=== PATIENT | male | born 1965 | race African-American/Black ===

== ENCOUNTER 2022-06-23 01:01 | Emergency (ER) | payer MEDICAID, OTHER ==
[~2022-06-23] VITALS: Ht 210.8 cm; Wt 83.0 kg
[2022-06-23] MEDS ORDERED: IV NS 0.9% 1,000 ML IV ONE (03:00)
[2022-06-23] MEDS ORDERED: VANCOMYCIN HCL 1.25 GM in IV D5W 260 ML IV ONE (03:00)
[2022-06-23] MEDS ORDERED: VANCOMYCIN 500 MG VIAL ONE (03:06)
[2022-06-23] MEDS ORDERED: VANCOMYCIN 1 GM VIAL ONE (03:06)
[2022-06-23 04:38] LABS: BASOPHILS % (AUTO) 0.5 % (0.0-2.0); EOSINOPHILS % (AUTO) 0.9 % (0.0-6.0); HEMATOCRIT 38 % (39-51); HEMOGLOBIN 12.4 g/dL (13.5-17.5); LYMPHOCYTES # (AUTO) 0.4 K/uL (0.8-4.8); LYMPHOCYTES % (AUTO) 9.1 % (20.0-44.0); MEAN CORPUSCULAR HGB CONC 33 g/dl (31.0-36.0); MEAN CORPUSCULAR VOLUME 92 fL (80-96); MONOCYTES # (AUTO) 0.5 K/uL (0.1-1.30); MONOCYTES % (AUTO) 11.7 % (2.0-12.0); NEUTROPHILS # (AUTO) 3.6 K/uL (1.8-8.9); NEUTROPHILS % (AUTO) 77.8 % (43.0-81.0); PLATELET COUNT (AUTO) 131 K/uL (150-450); RED BLOOD CELL COUNT(AUTO) 4.13 MIL/uL (4.5-6.0); WHITE BLOOD COUNT (AUTO) 4.7 K/uL (4.3-11.0)
[2022-06-23 05:23] LABS: BILIRUBIN,TOTAL 0.6 mg/dL (0.2-1.0); CALCIUM, SERUM 9.4 mg/dL (8.5-10.1); CREATININE 1.2 mg/dL (0.6-1.3); TOTAL PROTEIN, SERUM 7.5 g/dL (6.4-8.2)
[2022-06-23] MEDS ORDERED: ONDANSETRON HCL/PF 4 MG/2 ML VIAL IVP PRN (05:30)
[2022-06-23] MEDS ORDERED: ACETAMINOPHEN 325 MG TABLET PO PRN (05:30)
[2022-06-23] MEDS ORDERED: IV NS 0.9% 1,000 ML IV PRN (05:30)
[2022-06-23] MEDS ORDERED: HYDROCODONE/APAP 5/325MG TABLET PO PRN (05:30)
[2022-06-23] MEDS ORDERED: ENOXAPARIN SODIUM 40 MG/0.4 ML DISP.SYRIN SQ SCH (05:30)
--- NOTE | 2022-06-23 07:00 | NUR ---
BLOOD SAMPLES OBTAINED
--- NOTE | 2022-06-23 07:00 | NUR ---
R AC 20 g
--- NOTE | 2022-06-23 07:00 | NUR ---
BIBS FOR ABSCESS OF RLE. A/O X 3, ABLE TO MAKE NEEDS KNOWN, TOLERATING WELL ON ROOM AIR.
--- NOTE | 2022-06-23 10:06 | NUR ---
CALLED [phone] OPTION 1, 3, JORGE. PT GOING TO [facility] ROOM 5-1 [id number] [place] [phone] HAVE RESERVATION WITH CALL THE CAR [phone] AWAITING ETA
--- NOTE | 2022-06-23 10:48 | NUR ---
ANNETTE BURKETT AT BEDSIDE.
[2022-06-23 11:10] VITALS: BP 113/65
--- NOTE | 2022-06-23 11:10 | NUR ---
Report given to BILLY Schmitz
--- NOTE | 2022-06-23 11:10 | NUR ---
Patient transported from hospital via stretcher accompanied by 2 correctional manager. Patient stable at time of discharge.
== END 2022-06-23 11:11 | disposition short-term general hospital (02) ==
LOC: ER 01:04
DX: L03.115 Cellulitis of right lower limb (principal); Z20.822 Contact with and (suspected) exposure to COVID-19; Z85.46 Personal history of malignant neoplasm of prostate
CPT/HCPCS: 99285; 96365; 96366; 87426; 85025; 87040 ×2; 83605; 85652; 36415; 80053; 86140; C9803; J3370; J7060

== ENCOUNTER 2023-04-24 13:44 | Emergency (ER) | payer OTHER ==
[~2023-04-24] VITALS: Ht 185.4 cm; Wt 84.4 kg
[2023-04-24] MEDS ORDERED: TDAP [DIPH/PERTUSSIS/TET] 0.5 ML VIAL IM ONE (15:26)
[2023-04-24] MEDS: TDAP [DIPH/PERTUSSIS/TET] 0.5 ML VIAL IM ONE (15:32)
[2023-04-24] MEDS ORDERED: CEPH500C2 PO (17:12)
[2023-04-24] MEDS ORDERED: BACI/NEOM/POLY B OINT PKT 1 UDPKT PACKET ONE (17:14)
[2023-04-24] MEDS: BACI/NEOM/POLY B OINT PKT 1 UDPKT PACKET TP ONE (17:14)
[2023-04-24 17:20] VITALS: BP 124/72; TEMP 98.1; O2SAT 97
== END 2023-04-24 17:20 | disposition home or self-care (01) ==
LOC: ER 14:01
DX: S01.01XA Laceration without foreign body of scalp, initial encounter (principal); R51.9 Headache, unspecified; Z79.899 Other long term (current) drug therapy; Z60.2 Problems related to living alone; Y08.89XA Assault by other specified means, initial encounter; Y93.89 Activity, other specified; Y92.89 Other specified places as the place of occurrence of the external cause; Y99.8 Other external cause status
CPT/HCPCS: 12002; 70450; 70486; 72125; 90471; 90715; 99285; A6403